=== PATIENT | female | born 1945 | race Caucasian/White ===

== ENCOUNTER 2024-12-27 19:58 | Emergency (ER) | payer MEDICARE, OTHER ==
[2024-12-27] MEDS: Magnesium Citrate Solution 296 ML Bottle PO ONE (21:54)
== END 2024-12-27 21:54 | disposition home or self-care (01) ==
LOC: JD.ED 19:58
DX: K59.00 Constipation, unspecified (principal); I10 Essential (primary) hypertension
CPT/HCPCS: 74019; 99283; A9270